=== PATIENT | male | born 1965 | race Caucasian/White ===

== ENCOUNTER → 2018-11-12 | Outpatient (CLI) | payer OTHER ==
--- NOTE | 2018-11-12 13:47 | Diagnostic Imaging Report ---
INDICATION: Pain. FINDINGS: There appears to be an anterior dislocation of the right shoulder. There is no fracture. The visualized right lung is clear. The soft tissues are unremarkable. IMPRESSION: The findings are suspect for an anterior right shoulder dislocation. Recommend clinical correlation and, if warranted, followup with a scapular Y view. Dictated by: Dictated on workstation # [id number]
== END ==
LOC: RAD 10:02
PROVIDERS: ATTEND Surgery
DX: Z02.71 Encounter for disability determination (principal); S49.91XA Unspecified injury of right shoulder and upper arm, initial encounter; F32.9 Major depressive disorder, single episode, unspecified; F41.9 Anxiety disorder, unspecified; F40.00 Agoraphobia, unspecified; R03.0 Elevated blood-pressure reading, without diagnosis of hypertension
CPT/HCPCS: 73030